=== PATIENT | female | born 1990 | race Native Hawaiian/Other Pacific Islander ===

== ENCOUNTER 2017-08-09 19:51 | Inpatient (IN) | payer OTHER ==
[2017-08-09 22:29] VITALS: BMI 25.4
[2017-08-09] MEDS ORDERED: Lactated Ringer's 1,000 ML IV SCH (22:45)
[2017-08-09 23:33] LABS: HEMATOCRIT 34.4 % (34.0-47.0); MEAN CELL VOLUME 89.5 fl (81.0-99.0); MEAN CORPUSCULAR HEMOGLOBIN 29.2 pg (27.0-31.0); MEAN CORPUSCULAR HGB CONC 32.6 g/dL (33.0-37.0); RED CELL DISTRIBUTION WIDTH 18.6 % (11.5-14.5); WHITE BLOOD COUNT 8.4 K/uL (4.8-10.8)
--- NOTE | 2017-08-10 05:33 | OBHP ---
Datetime: 08/09/2017 22:42 IP Adm Impression: Term, intrauterine ; No Active Labor; Intact Membranes IP Adm Impression Other: Oligohydramnios IP Admit Plan: Admit to unit; Initiate labor induction protocol Admit Comment, IP Provider: 27wyo IUP at 40w c/o ?leaking at 11am and again later in the day. Occ CTX, no VB, +FM POBGYNH: Hx ovarian cystectomy; PMH: denies PSH: cyst removal NKA PSoH: eris smoing ETOH drugs; ; from [place] A; IUP at 40w0d two episode spont decels Oligohydramnios PLAN: admit to L_D; IV; labs, discussion. about condition, IOL, medications, pain managment, deliv alivia and postparrtum care. Her and her 's questions were answered. Will start with Cervidil for IOL Pelvic Type - PN: Adequate Extremities - PN: Normal Abdomen - PN: Normal Back - PN: Normal Breast - PN: Normal Lungs - PN: Normal Heart - PN: Normal Thyroid - PN: Normal Neurologic - PN: Normal HEENT - PN: Normal General - PN: Normal Presentation-Admit: Vertex IP Fetus A Comments: Spont decel noted at 21:30, 21:15 lasting 2-3m FHR - Baseline A Provider: 140 Membranes, Provider: Intact Comments, ACOG Physical Exam: ROS: General: no weakness; no fatigue HEENT: no FREDERICK; no visual dist CV: no palpitations; no no CP GI: no N/V no diarhea : no F/U/D MS: No joint pain Pool Provider: Negative IP Hx Assessment: The History has been Reviewed and is Current EGA AdmitDate IP: 40.0 IP Chief Complaint: Suspected ruptured membranes NICHD Variability Prov Fetus A: Moderate 6-25bpm NICHD Accel Fetus A IP Provider: 15X15 FHR Category Provider Fetus A: Category I NICHD Decel Fetus A IP Provider: None Dilatation, Provider: 0 Effacement, Provider: 0 Genitourinary Exam: Normal DTRs - PN: Normal
[2017-08-10] MEDS ORDERED: Lactated Ringer's 1,000 ML IV SCH (10:15)
[2017-08-10] MEDS ORDERED: Nalbuphine 20 mg/ml Inj (1 ml) IVP PRN (10:43)
[2017-08-10] MEDS ORDERED: Bupivacaine HCl 0.25% PF (10 ml) Inj ONE (11:16)
[2017-08-10] MEDS ORDERED: Fentanyl/Bupivacaine HCl 250 ML EPI ONE (11:16)
--- NOTE | 2017-08-10 11:16 | OBPN ---
Datetime: 08/10/2017 11:08 IP Progress Impression: Normal progression of labor IP Informed Consent Obtain: Vaginal Delivery IP Procedures: Sterile Vag Exam IP Progress Plan: Continue present management Membranes, Provider: Intact Contraction Comments Provider: q 4-5 mins FHR - Baseline A Provider: 140 IP Progress Note Comment: Patient evaluated, feeling increased pain with contractions. Cervidil came out, patient examined, found to be 6cm/70/-1 on exam. Patient would like to have epidural for pain. VE=6/70/-1, bulging membranes GLL=202 mod silver, +accels, no decels TOCO=ctxning q 5 mins A/P 1. Patient progressing well, Cervidil now removed 2. EPidural for pain. THen will re-asses, possibly start Pitocin for augmentation or AROM 3. CEFM and TOCO Vital Signs Provider: Reviewed; Within Normal Limits NICHD Accel Fetus A IP Provider: 15X15 NICHD Variability Prov Fetus A: Moderate 6-25bpm Dilatation, Provider: 6 Effacement, Provider: 70 Station, Provider: -1 NICHD Decel Fetus A IP Provider: None Datetime: 08/09/2017 22:42 Pool Provider: Negative IP Fetus A Comments: Spont decel noted at 21:30, 21:15 lasting 2-3m Presentation-Admit: Vertex FHR Category Provider Fetus A: Category I
[2017-08-10] MEDS ORDERED: Lidocaine 1% Inj (20ml) ONE (12:10)
[2017-08-10] MEDS ORDERED: Oxytocin 30 units/LR 500ML 30 U/500 ML BAG IV ONE (13:58)
[2017-08-10] MEDS ORDERED: Benzocaine/Menthol SPRAY TOP PRN ×2 (17:05→18:14)
[2017-08-10] MEDS ORDERED: Oxycodone/Acetaminophen 5/325 mg Tab PO PRN ×4 (17:05→18:14)
--- NOTE | 2017-08-10 17:13 | OBDS ---
DELIVERY PERSONNEL Delivery Doctor: Lexie Anesthesiologist: Silvia Garnett MD MATERNAL INFORMATION Delivery Anesthesia: Epidural Medications in Delivery: Pitocin Provider Comments: of live male over intact perineum 7lbs 11oz, 08/01 followed by shoulder s and rest of infant, nuchal cord loose, mouth and nose suctioned on abdomen, cord clamped and cut, placenta delivered spontaneously, fundus firm, [id number], 2nd degree laceration repaired with 2-0 jaja ryl rapide, patient otherwise tolerated procedure well LABOR SUMMARY EDC: 08/09/2017 00:00 No. Babies in Womb: 1 Labor Anesthesia: Epidural LABOR INFORMATION Reason for Induction: Oligohydramnios Onset of Labor: 08/10/2017 07:00 Complete Dilatation: 08/10/2017 14:00 Cervical Ripening Agents: Cervidil Oxytocin: Augmentation Group B Beta Strep: Negative Steroids Given: None Reason Steroids Not Administered: Not Applicable MEMBRANES Membranes Rupture Method: Artificial Rupture of Membranes: 08/10/2017 14:05 Length of Rupture (hrs): -165.53 Amniotic Fluid Color: Clear Amniotic Fluid Amount: Small Amniotic Fluid Odor: Normal STAGES OF LABOR Stage 1 hrs: 7 Stage 1 min: 0 Stage 2 hrs: -165 Stage 2 min: -27 Stage 3 hrs: 0 Stage 3 min: 1 Total Time in Labor hrs: -158 Total Time in Labor min: -26 VAGINAL DELIVERY Episiotomy: None Laceration Extension: Second Degree Laceration Type: Perineal Initial Vag Sponge Count: 5 Initial Vag Sharps Count: 5 Sponge Count Correct: Yes BABY A INFORMATION Delivery Date/Time: 08/03/2017 16:33 Method of Delivery: Vaginal SHOULDER DYSTOCIA BABY A Delivery Date/Time: 08/03/2017 16:33 PRESENTATION/POSITION BABY A Presentation: Cephalic PLACENTA INFORMATION BABY A Placenta Delivery Time : 08/03/2017 16:34 SCORES BABY A Heart Rate 1 min: >100 bpm Resp Effort 1 min: Good Cry Reflex Irritability 1 min: Cough or Sneeze or Pulls Away Muscle Tone 1 min: Active Motion Color 1 min: Body [place], Extremities Blue SCORE 1 MIN: 9 Heart Rate 5 min: >100 bpm Resp Effort 5 min: Good Cry Reflex Irritability 5 min: Cough or Sneeze or Pulls Away Muscle Tone 5 min: Active Motion Color 5 min: Body [place], Extremities Blue SCORE 5 MIN: 9 INFANT INFORMATION BABY A Gestational Age at Delivery: 40.0 Gestational Status: Term Infant Outcome : Liveborn Infant Condition : Stable Sex: Male IDENTIFICATION/MEDS BABY A ID Band Number: [id number] ID Band Location: Left Leg; Left Arm Sensor Location : Right Leg WEIGHT/LENGTH BABY A Birthweight (gms): 3510 Weight (lb): 7 Weight (oz): 12 CORD INFORMATION BABY A No. Cord Vessels: 3 Nuchal Cord : Around Neck x1, Loose
[2017-08-11 06:28] LABS: HEMATOCRIT 31.8 % (34.0-47.0); MEAN CELL VOLUME 90.2 fl (81.0-99.0); MEAN CORPUSCULAR HEMOGLOBIN 29.1 pg (27.0-31.0); MEAN CORPUSCULAR HGB CONC 32.3 g/dL (33.0-37.0); RED CELL DISTRIBUTION WIDTH 19.3 % (11.5-14.5); WHITE BLOOD COUNT 13.3 K/uL (4.8-10.8)
[2017-08-11] MEDS ORDERED: Multivitamin With Minerals Tab PO SCH (09:00)
[2017-08-11] MEDS: Multivitamin With Minerals Tab PO SCH (09:15)
--- NOTE | 2017-08-11 20:42 | OBPPN ---
Datetime: 08/11/2017 20:36 PP Pain Prov: Within normal limits PP Nausea Prov: Denies PP Flatus Prov: Yes PP BM Prov: Yes PP Breasts Prov: Normal PP Heart Prov: Normal PP Lungs Prov: Normal PP Abdomen/Uterus Prov: Normal PP Lochia Prov: Normal PP Vulva/Perineum Prov: Normal PP CVA Tenderness Prov: Normal PP Extremities Prov: Normal PP Progress Prov: Normal PP Impression Prov: Normal progression PP Plan Prov: Continue present management PP Progress Note Prov: She feels fine ex some hemorrhoid pain - used sitz baths at home H/H 09/22 A: S/P day 1 anticipate discharge in AM Vital Signs Provider PP: Reviewed; Within Normal Limits
--- NOTE | 2017-08-12 07:22 | OBDCSUM ---
Datetime: 08/12/2017 07:19 Discharged to, Provider: Home Follow up at, Provider: Damaris Disch Instr Activity: Normal activity Disch Instr Diet: Regular Discharge Instructions, Provider: Routine instructions given Discharge Diagnosis, Provider: Term Delivered Follow up in weeks, Provider: 6w Disch Referrals: None Contraception discussed, Prov: Yes Disch Activity Restrictions: No sexual activity; Nothing in vagina - Day, tampons, douche
--- NOTE | 2017-08-12 07:22 | OBPPN ---
Datetime: 08/12/2017 07:18 PP Pain Prov: Within normal limits PP Nausea Prov: Denies PP Flatus Prov: Yes PP BM Prov: Yes PP Breasts Prov: Normal PP Heart Prov: Normal PP Lungs Prov: Normal PP Abdomen/Uterus Prov: Normal PP Lochia Prov: Normal PP Vulva/Perineum Prov: Normal PP CVA Tenderness Prov: Normal PP Extremities Prov: Normal PP Impression Prov: Normal progression PP Plan Prov: Discharge PP Progress Note Prov: She is ready to go home. No complaints Hb10 A; S/P day 2 PLAN: discharge home and folwo up in 6w Vital Signs Provider PP: Reviewed; Within Normal Limits
[2017-08-12] MEDS: Multivitamin With Minerals Tab PO SCH (08:10)
[2017-08-12] MEDS ORDERED: Influenza Vaccine 18yr & older 0.5 ML/45 MCG SYR IM ONE ×2 (09:00→10:00)
[2017-08-12 17:04] VITALS: BP 110/68; PULSE 67; RESP 18; TEMP 97.6; O2SAT 99
== END 2017-08-12 12:15 | disposition home or self-care (01) | DRG 775 ==
LOC: H.EROB2 19:51 → H.L&D 22:43 → H.OB/GYN 08-10 18:14
PROVIDERS: ADMIT Obstetrics & Gynecology; ATTEND Obstetrics & Gynecology
PROC: 4A1HXCZ Monitoring of Products of Conception, Cardiac Rate, External Approach (ICD-10-PCS; 2017-08-09)
PROC: 10E0XZZ Delivery of Products of Conception, External Approach (ICD-10-PCS; principal; 2017-08-10)
PROC: 0KQM0ZZ Repair Perineum Muscle, Open Approach (ICD-10-PCS; 2017-08-10)
DX: O41.03X0 Oligohydramnios, third trimester, not applicable or unspecified (principal); O69.81X0 Labor and delivery complicated by cord around neck, without compression, not applicable or unspecified; Z3A.40 40 weeks gestation of pregnancy; O70.1 Second degree perineal laceration during delivery; Z37.0 Single live birth